=== PATIENT | female | born 1965 | race Caucasian/White ===

== ENCOUNTER 2016-06-07 17:32 | Emergency (ER) | payer OTHER ==
[~2016-06-07] VITALS: Ht 172.7 cm; Wt 104.3 kg
[~2016-06-07 17:32] MED LIST: 'PARAFON FORTE500 M1 PO; BACTRIM DS 8001 TA1 PO; CYCLOBENZAPRINE10 MG PO; DITROPAN5 MG PO; KLONOPIN0.5 MG PO; KLONOPIN1 MG PO; NAPROSYN500 MG PO; NORCO 10-325 T1 EACH PO; PAXIL20 MG PO; PAXIL30 M1 PO; PHENERGAN W/ DE30 ML PO; PREDNICOT10 MG PO; PRILOSEC20 M1 PO; PROAIR HFA0.09 MG/AC INH; PROVENTIL0.09 MG/A1 INH; PYRIDIUM200 MG PO; SINGULAIR10 MG PO
[2016-06-07] MEDS ORDERED: PREDNISONE10 MG PO (19:28)
[2016-06-07] MEDS ORDERED: AUGMENTIN 875-875 MG PO (19:28)
== END 2016-06-07 19:35 | disposition home or self-care (01) ==
LOC: ED 17:32
DX: J20.9 Acute bronchitis, unspecified (principal); F17.210 Nicotine dependence, cigarettes, uncomplicated; Z90.49 Acquired absence of other specified parts of digestive tract; Z79.899 Other long term (current) drug therapy

== ENCOUNTER 2016-10-02 22:33 | Inpatient (IN) | payer OTHER ==
[~2016-10-02] VITALS: Ht 172.7 cm; Wt 94.9 kg
[~2016-10-02 22:33] MED LIST changes: +AUGMENTIN 875-875 MG PO; +PREDNISONE10 MG PO
[2016-10-02 22:43] VITALS: BP 162/65
[2016-10-02 23:25] LABS: BASO % 0.2 % (0.0-1.0); EOS # 0.1 10*3/uL (0.0-0.4); EOS % 0.4 % (1.0-4.0); HEMOGLOBIN 13.2 g/dl (12.0-16.0); IG # 0.1 10*3/uL (0.0-0.1); LYMPH # 2.8 10*3/uL (1.3-4.4); LYMPH % 15.6 % (27.0-41.0); MEAN CELL VOLUME 90.9 fl (81.0-99.0); MEAN CORPUSCULAR HGB 30.8 pg (27.0-31.0); MEAN CORPUSCULAR HGB CONC 33.8 g/dl (33.0-37.0); MEAN PLATELET VOLUME 11.2 fl (9.6-12.3); MONO # 0.8 10*3/uL (0.1-1.0); MONO % 4.5 % (3.0-9.0); NEUT # 14.4 10*3/uL (2.3-7.9); NEUT % 78.9 % (47.0-73.0); PLATELET COUNT AUTOMATED 254 10*3/uL (130-400); RED BLOOD COUNT 4.29 10*6/uL (4.10-5.10); RED CELL DISTRI WIDTH 12.7 % (0-14.5); WHITE BLOOD COUNT 18.2 10*3/uL (4.8-10.8)
[2016-10-02 23:34] LABS: BILIRUBIN NEGATIVE (NEGATIVE); BLOOD 2+ (NEGATIVE); CLARITY CLEAR (CLEAR); COLOR YELLOW (YELLOW); GLUCOSE NEGATIVE (NEGATIVE); KETONE NEGATIVE (NEGATIVE); LEUKO ESTERASE NEGATIVE (NEGATIVE); NITRITE NEGATIVE (NEGATIVE); PH 5.5 (5.0-9.0); PROTEIN NEGATIVE (NEGATIVE); SPECIFIC GRAVITY <= 1.005 (1.005-1.030); UROBILINOGEN 0.2 E.U./dl (0.2-1.0)
[2016-10-02 23:40] LABS: BACTERIA TRACE
[2016-10-02 23:41] LABS: URINE REFLEX COMMENT YES (NO)
[2016-10-02 23:41] LABS: ALBUMIN 3.7 gm/dl (3.1-4.5); ALKALINE PHOSPHATASE 91 U/L (45-117); BILIRUBIN, TOTAL 0.3 mg/dl (0.2-1.0); BUN 13 mg/dl (7-24); CARBON DIOXIDE 23 mmol/L (21-32); CHLORIDE 105 mmol/L (98-107); EST GLOM FILT AFRICAN AMERICAN > 60 ml/min; GLUCOSE 98 mg/dL (65-99); POTASSIUM 3.4 mmol/L (3.5-5.1); SGOT/AST 10 IU/L (3-35); SGPT/ALT 16 U/L (12-78); SODIUM 137 mmol/L (136-145); TOTAL PROTEIN 7.2 gm/dL (6.4-8.2)
[2016-10-03] VITALS (12 sets, daily range): BP systolic 100–158; BP diastolic 49–76
[2016-10-03 06:06] LABS: BASO % 0.2 % (0.0-1.0); EOS # 0.1 10*3/uL (0.0-0.4); EOS % 0.8 % (1.0-4.0); HEMATOCRIT 33.8 % (37.0-47.0); HEMOGLOBIN 11.5 g/dl (12.0-16.0); IG # 0.1 10*3/uL (0.0-0.1); LYMPH # 2.7 10*3/uL (1.3-4.4); MEAN CELL VOLUME 91.8 fl (81.0-99.0); MEAN CORPUSCULAR HGB 31.3 pg (27.0-31.0); MEAN PLATELET VOLUME 10.8 fl (9.6-12.3); MONO # 0.6 10*3/uL (0.1-1.0); NEUT # 9.2 10*3/uL (2.3-7.9); NEUT % 72.6 % (47.0-73.0); PLATELET COUNT AUTOMATED 206 10*3/uL (130-400); RED BLOOD COUNT 3.68 10*6/uL (4.10-5.10); RED CELL DISTRI WIDTH 12.7 % (0-14.5); WHITE BLOOD COUNT 12.7 10*3/uL (4.8-10.8)
[2016-10-03 06:21] LABS: CKMB 1.3 ng/ml (0.5-3.6); CPK 116 U/L (26-192)
[2016-10-03 06:23] LABS: TROPONIN I < 0.015 ng/ml (<0.045)
[2016-10-03 06:36] LABS: BUN 10 mg/dl (7-24); CARBON DIOXIDE 25 mmol/L (21-32); CHLORIDE 112 mmol/L (98-107); CHOLESTEROL 142 mg/dL (<200); EST GLOM FILT AFRICAN AMERICAN > 60 ml/min; FREE T4 1.47 ng/dl (0.76-1.46); GLUCOSE 118 mg/dL (65-99); HDL CHOLESTEROL 38 mg/dl (40-60); LDL CHOLESTEROL 85 mg/dL (9-159); POTASSIUM 3.2 mmol/L (3.5-5.1); SODIUM 143 mmol/L (136-145); TRIGLYCERIDES 97 mg/dl (<150); VLDL CHOLESTEROL 19 mg/dL (6-40)
[2016-10-03 06:46] LABS: INTERNATIONAL NORM RATIO 1.1 (2.0-3.5); PROTHROMBIN TIME 11.2 SECONDS (9.0-12.4)
[2016-10-03 07:15] LABS: HEMOGLOBIN A1c 5.7 % (4.8-5.6)
[2016-10-03 08:02] LABS: VITAMIN D, 25-HYDROXY 25.4 ng/mL (30-100)
[2016-10-03 08:03] LABS: FOLIC ACID 8.09 ng/mL (>5.38)
[2016-10-03 12:09] LABS: CKMB 1.3 ng/ml (0.5-3.6); CPK 99 U/L (26-192)
[2016-10-03 12:12] LABS: TROPONIN I < 0.015 ng/ml (<0.045)
[2016-10-03 18:09] LABS: CKMB 1.4 ng/ml (0.5-3.6); CPK 95 U/L (26-192); TROPONIN I < 0.015 ng/ml (<0.045)
[2016-10-04] VITALS: BP 122/51
[2016-10-04 08:00] VITALS: BP 136/59
[2016-10-04 12:00] VITALS: BP 104/52
[2016-10-04 16:00] VITALS: BP 111/47
[2016-10-04 20:00] VITALS: BP 122/63
[2016-10-05] VITALS: BP 130/72
[2016-10-05 06:01] LABS: BASO % 0.3 % (0.0-1.0); EOS # 0.3 10*3/uL (0.0-0.4); EOS % 3.8 % (1.0-4.0); HEMATOCRIT 35.1 % (37.0-47.0); HEMOGLOBIN 11.7 g/dl (12.0-16.0); LYMPH # 2.8 10*3/uL (1.3-4.4); LYMPH % 32.4 % (27.0-41.0); MEAN CELL VOLUME 94.4 fl (81.0-99.0); MEAN CORPUSCULAR HGB 31.5 pg (27.0-31.0); MEAN CORPUSCULAR HGB CONC 33.3 g/dl (33.0-37.0); MEAN PLATELET VOLUME 11.4 fl (9.6-12.3); MONO # 0.4 10*3/uL (0.1-1.0); NEUT % 58.3 % (47.0-73.0); PLATELET COUNT AUTOMATED 255 10*3/uL (130-400); RED BLOOD COUNT 3.72 10*6/uL (4.10-5.10); RED CELL DISTRI WIDTH 12.9 % (0-14.5); WHITE BLOOD COUNT 8.6 10*3/uL (4.8-10.8)
[2016-10-05 06:23] LABS: ALBUMIN 2.7 gm/dl (3.1-4.5); BUN 7 mg/dl (7-24); CARBON DIOXIDE 25 mmol/L (21-32); CHLORIDE 112 mmol/L (98-107); EST GLOM FILT AFRICAN AMERICAN > 60 ml/min; GLUCOSE 96 mg/dL (65-99); POTASSIUM 3.9 mmol/L (3.5-5.1); SGOT/AST 12 IU/L (3-35); SGPT/ALT 15 U/L (12-78); SODIUM 145 mmol/L (136-145)
[2016-10-05 06:25] LABS: ALKALINE PHOSPHATASE 70 U/L (45-117); BILIRUBIN, TOTAL 0.3 mg/dl (0.2-1.0); TOTAL PROTEIN 5.8 gm/dL (6.4-8.2)
[2016-10-05 08:00] VITALS: BP 114/54
[2016-10-05] MEDS ORDERED: IBU800 MG PO (11:36)
[2016-10-05] MEDS ORDERED: VITAMIN D5000 I3 PO (11:36)
[2016-10-05] MEDS ORDERED: BACTRIM DS 8001 TA1 PO (11:36)
[2016-10-05] MEDS ORDERED: KEFLEX500 M1 PO (11:36)
[2016-10-05] MEDS ORDERED: B-12500 MC1 PO (11:36)
[2016-10-05] MEDS ORDERED: KROGER NIC21 MG/24 H T (11:36)
[2016-10-05 12:00] VITALS: BP 120/87
== END 2016-10-05 16:33 | disposition home or self-care (01) | DRG 871 ==
LOC: ED 22:33 → 5E 10-03 00:50 → EDHOLD 10-03 00:50 → 5E 10-03 00:57
PROVIDERS: Emergency Medicine Emergency Medical Services; Internal Medicine
PROC: 0X950ZZ Drainage of Left Axilla, Open Approach (ICD-10-PCS; principal; 2016-10-03)
DX: A41.9 Sepsis, unspecified organism (principal); E43 Unspecified severe protein-calorie malnutrition; L03.319 Cellulitis of trunk, unspecified; L02.412 Cutaneous abscess of left axilla; E87.6 Hypokalemia; R73.9 Hyperglycemia, unspecified; M54.30 Sciatica, unspecified side; E66.9 Obesity, unspecified; F41.1 Generalized anxiety disorder; F32.9 Major depressive disorder, single episode, unspecified; J45.909 Unspecified asthma, uncomplicated; E55.9 Vitamin D deficiency, unspecified; F17.200 Nicotine dependence, unspecified, uncomplicated; D64.9 Anemia, unspecified; E53.8 Deficiency of other specified B group vitamins; R31.21 Asymptomatic microscopic hematuria; M54.5 Low back pain; Z79.2 Long term (current) use of antibiotics; Z71.6 Tobacco abuse counseling; Z79.899 Other long term (current) drug therapy; Z68.31 Body mass index [BMI] 31.0-31.9, adult

== ENCOUNTER → 2017-06-23 | Day surgery (SDC) | payer OTHER ==
[~2017-06-23] VITALS: Ht 172.7 cm; Wt 93.0 kg
[~2017-06-23] MED LIST changes: +B-12500 MC1 PO; +IBU800 MG PO; +KEFLEX500 M1 PO; +KROGER NIC21 MG/24 H T; +VITAMIN D5000 I3 PO; +ZYRTEC10 MG PO
--- NOTE | ~2017-06-23 | O ---
[place], [place] OPERATIVE NOTE NAME: SANGITA DIAS UNIT #: [id number] ROOM: DOCTOR: DOTTY BARRY MD BIRTHDATE: [birth year] DOS: 06/23/2017 HISTORY OF PRESENT ILLNESS: This is a 51-year-old patient who presented with a chief complaint of dyspepsia on Prilosec, diarrhea and constipation, changes in bowel movement. ALLERGIES: No known medications. FAMILY HISTORY: Noncontributory. PAST SURGICAL HISTORY: Cholecystectomy, tonsillectomy, sinus cyst repair. PAST MEDICAL HISTORY: Anxiety. SOCIAL HISTORY: Smoker, nonalcohol consumer. PROCEDURE: Today's procedure part of investigation is panendoscopy and colonoscopy. PREMEDICATION: Versed and Diprivan. SCOPE: Olympus forward-viewing gastroscope Q10 video. REPORT: After putting the patient in left lateral position and application of lubricant to the scope, the scope was introduced. Thereafter, under direct visualization, I advanced through the length of the esophagus without difficulty. Small hiatal hernia was noticed. Gastric pouch was entered. Gastritis was seen. Duodenal bulb, second and third part within normal limits. The patient was gradually extubated and tolerated the procedure well. IMPRESSION: Gastritis, small hiatal hernia, status post biopsy. PLAN AND DISCUSSION: Continue with PPI therapy at least omeprazole 20 mg 1 every day, antireflux measures with elevation of the head of bed, Gaviscon as antacid of choice. If she is dyspeptic still increasing to 40 mg, omeprazole per day and clinical reassessment. Awaiting biopsy results for H. pylori. GASTROENDOSCOPIC REPORT INDICATIONS: The patient has presented with change in bowel habit, diarrhea, constipation, undergoing investigation. PROCEDURE: Today's procedure part of investigation is colonoscopy. PREMEDICATION: Versed and Diprivan. SCOPE: Olympus folding colonoscope 10L video. OPERATIVE TECHNIQUE: After putting the patient in left lateral position and application of lubricant to the scope, the scope was introduced. Thereafter, [place], [place] OPERATIVE NOTE NAME: SANGITA DIAS UNIT #: [id number] ROOM: DOCTOR: DOTTY BARRY MD BIRTHDATE: [birth year] under direct visualization, advanced through the length of colon without difficulty. Diverticulosis was appreciated. Base of the cecum explored, appendiceal orifice was identified. Ileocecal valve was defined. Random biopsy of the colon was obtained, ruling out collagenous colitis or infiltrative disease. The patient extubated, tolerated procedure well. IMPRESSION: Diverticulosis, sigmoid colon mild, status post random biopsy of colon, ruling out collagenous or infiltrating diseases. PLAN AND DISCUSSION: Awaiting biopsy results. Meanwhile, I will try to start her on dicyclomine 10 mg 1 every day to see if the diarrhea phase change in bowel habit is going to be resolved. We are keeping in mind, this patient may be suffering as well from irritable bowel syndrome, high fiber diet was recommended. Follow up as outpatient routinely with you in office, p.r.n. visit with us in GI clinic. I thank you again for your very kind referral. DOTTY BARRY MD CM:OPRECORD:OPERATIVE NOTE [id number] 1322 EDWINA Zee (CHERYL BARRY MD 06/23/17 1321 interface
[2017-06-23 10:27] VITALS: BP 109/69
[2017-06-23 11:59] VITALS: BP 130/65
[2017-06-23 12:14] VITALS: BP 130/65
[2017-06-23 12:29] VITALS: BP 130/65
== END | disposition home or self-care (01) ==
LOC: SDC 06-20 09:30
DX: K29.50 Unspecified chronic gastritis without bleeding (principal); K57.30 Diverticulosis of large intestine without perforation or abscess without bleeding; Z90.49 Acquired absence of other specified parts of digestive tract; F41.9 Anxiety disorder, unspecified; F17.210 Nicotine dependence, cigarettes, uncomplicated; K31.9 Disease of stomach and duodenum, unspecified; J45.909 Unspecified asthma, uncomplicated; K21.9 Gastro-esophageal reflux disease without esophagitis

== ENCOUNTER → 2017-09-01 | Outpatient (CLI) | payer OTHER ==
[~2017-09-01] MED LIST changes: +ASPIRIN81 M1 PO
== END | disposition home or self-care (01) ==
LOC: RAD 13:58
DX: M41.84 Other forms of scoliosis, thoracic region (principal); M25.511 Pain in right shoulder; R53.1 Weakness; R20.0 Anesthesia of skin

== ENCOUNTER → 2017-09-29 | Outpatient (CLI) | payer OTHER ==
--- NOTE | ~2017-09-29 | ST ---
[place], [place] EXERCISE STRESS TEST REPORT [id number] UNIT #: [id number] ROOM: DOCTOR: ZARA HERNÁNDEZ MD BIRTHDATE: [birth year] DOS: 09/29/2017 PHARMACOLOGIC STRESS TEST REFERRED BY: Dr. Prasad. REASON: Chest pain and fatigue. PROCEDURE: The patient was given a rapid infusion of regadenoson 0.4 mg intravenously followed by a saline flush. Her resting electrocardiogram showed sinus bradycardia at a rate of 42. With the infusion, her heart rate van to 88. Her resting blood pressure of 120/76 van to 124/74. The patient did experience dyspnea, nausea, headache and "weird sensations" but these passed spontaneously. Forty seconds after the infusion of regadenoson, she was given radionuclide intravenously. Her electrocardiogram showed no diagnostic changes with the infusion. IMPRESSION: 1. Well tolerated infusion of regadenoson. 2. Radionuclide injected. Please see the separate imaging report for further details of the patient's stress test results. ZARA HERNÁNDEZ MD CM:STRESS:EXERCISE STRESS TEST REPORT [id number] ZARA HERNÁNDEZ MD
== END | disposition home or self-care (01) ==
LOC: CARD 09-22 10:30
DX: R07.9 Chest pain, unspecified (principal); R94.31 Abnormal electrocardiogram [ECG] [EKG]; R94.39 Abnormal result of other cardiovascular function study

== ENCOUNTER → 2018-02-19 | Outpatient (CLI) | payer OTHER | END | disposition home or self-care (01) | LOC: RAD 15:17 | DX: J45.909 Unspecified asthma, uncomplicated (principal); I25.10 Atherosclerotic heart disease of native coronary artery without angina pectoris; F17.210 Nicotine dependence, cigarettes, uncomplicated; R07.9 Chest pain, unspecified ==

== ENCOUNTER 2018-11-05 21:28 | Emergency (ER) | payer OTHER ==
[~2018-11-05] VITALS: Ht 172.7 cm; Wt 95.3 kg
[2018-11-05] MEDS ORDERED: CLINDAMYCIN HC300 MG PO (22:22)
== END 2018-11-05 22:10 | disposition home or self-care (01) ==
LOC: ED 21:28
DX: N61.1 Abscess of the breast and nipple (principal); J45.909 Unspecified asthma, uncomplicated; E66.9 Obesity, unspecified; F17.200 Nicotine dependence, unspecified, uncomplicated; Z68.30 Body mass index [BMI] 30.0-30.9, adult; Z90.49 Acquired absence of other specified parts of digestive tract; Z79.899 Other long term (current) drug therapy; Z79.82 Long term (current) use of aspirin

== ENCOUNTER 2018-11-09 22:38 | Emergency (ER) | payer OTHER ==
[~2018-11-09] VITALS: Ht 172.7 cm; Wt 97.5 kg
[~2018-11-09 22:38] MED LIST changes: +CLINDAMYCIN HC300 MG PO
[2018-11-09 23:05] LABS: BILIRUBIN 1+ (NEGATIVE); BLOOD 3+ (NEGATIVE); CLARITY CLOUDY (CLEAR); COLOR BROWN (YELLOW); GLUCOSE NEGATIVE (NEGATIVE); KETONE TRACE (NEGATIVE); LEUKO ESTERASE 2+ (NEGATIVE); NITRITE POSITIVE (NEGATIVE); PH 5.5 (5.0-9.0); SPECIFIC GRAVITY >= 1.030 (1.005-1.030)
[2018-11-09] MEDS ORDERED: BRILINTA90 M1 PO (23:12)
[2018-11-09] MEDS ORDERED: ATORVASTATIN CA40 M1 PO (23:12)
[2018-11-09] MEDS ORDERED: BUPROPION HCL150 M1 PO (23:12)
[2018-11-09] MEDS ORDERED: LISINOPRIL5 MG PO (23:12)
[2018-11-09] MEDS ORDERED: IMDUR SA30 MG PO (23:12)
[2018-11-09] MEDS ORDERED: CYCLOBENZAPRINE10 MG PO (23:13)
[2018-11-09 23:14] LABS: WBC TNTC wbc/hpf (0-5)
[2018-11-09 23:15] LABS: BACTERIA 2+; RBC TNTC rbc/hpf (0-2)
[2018-11-09] MEDS ORDERED: PYRIDIUM200 M1 PO (23:25)
[2018-11-09] MEDS ORDERED: AMINOPHYLLIN200 MG PO (23:25)
== END 2018-11-09 23:45 | disposition home or self-care (01) ==
LOC: ED 22:38
PROVIDERS: Physician Assistant
DX: N39.0 Urinary tract infection, site not specified (principal); F17.200 Nicotine dependence, unspecified, uncomplicated; Z79.82 Long term (current) use of aspirin; Z79.899 Other long term (current) drug therapy; Z90.49 Acquired absence of other specified parts of digestive tract

== ENCOUNTER 2018-11-19 14:06 | Emergency (ER) | payer OTHER ==
[~2018-11-19] VITALS: Ht 172.7 cm; Wt 95.3 kg
[~2018-11-19 14:06] MED LIST changes: +AMINOPHYLLIN200 MG PO; +ATORVASTATIN CA40 M1 PO; +BRILINTA90 M1 PO; +BUPROPION HCL150 M1 PO; +IMDUR SA30 MG PO; +LISINOPRIL5 MG PO; +PYRIDIUM200 M1 PO
[2018-11-19 14:43] LABS: BILIRUBIN NEGATIVE (NEGATIVE); BLOOD 2+ (NEGATIVE); CLARITY CLEAR (CLEAR); COLOR YELLOW (YELLOW); GLUCOSE NEGATIVE (NEGATIVE); KETONE NEGATIVE (NEGATIVE); LEUKO ESTERASE NEGATIVE (NEGATIVE); NITRITE NEGATIVE (NEGATIVE); SPECIFIC GRAVITY >= 1.030 (1.005-1.030)
[2018-11-19 14:48] LABS: EPITHELIAL CELLS 31-40
[2018-11-19 14:49] LABS: MUCOUS 1+
[2018-11-19] MEDS ORDERED: SEPTDS PO (15:46)
[2018-11-19] MEDS ORDERED: PYRIDIUM200 M1 PO (15:46)
== END 2018-11-19 16:00 | disposition home or self-care (01) ==
LOC: ED 14:06
PROVIDERS: Emergency Medicine
DX: R30.0 Dysuria (principal); F17.200 Nicotine dependence, unspecified, uncomplicated; Z90.89 Acquired absence of other organs; Z98.890 Other specified postprocedural states; Z79.899 Other long term (current) drug therapy; Z79.82 Long term (current) use of aspirin

== ENCOUNTER 2019-06-19 17:27 | Emergency (ER) | payer OTHER ==
[~2019-06-19] VITALS: Ht 172.7 cm; Wt 81.6 kg
[~2019-06-19 17:27] MED LIST changes: +SEPTDS PO
[2019-06-19 18:59] LABS: BASO # 0.1 10*3/uL (0.0-0.1); BASO % 0.4 % (0.0-1.0); EOS # 0.2 10*3/uL (0.0-0.4); EOS % 1.9 % (1.0-4.0); HEMATOCRIT 42.2 % (37.0-47.0); LYMPH # 2.8 10*3/uL (1.3-4.4); LYMPH % 23.9 % (27.0-41.0); MEAN CELL VOLUME 96.3 fl (81.0-99.0); MEAN CORPUSCULAR HGB CONC 33.2 g/dl (33.0-37.0); MEAN PLATELET VOLUME 10.6 fl (9.6-12.3); MONO # 0.5 10*3/uL (0.1-1.0); MONO % 4.5 % (3.0-9.0); NEUT # 7.9 10*3/uL (2.3-7.9); PLATELET COUNT AUTOMATED 349 10*3/uL (130-400); RED BLOOD COUNT 4.38 10*6/uL (4.10-5.10); RED CELL DISTRI WIDTH 12.3 % (0-14.5); WHITE BLOOD COUNT 11.5 10*3/uL (4.8-10.8)
[2019-06-19 19:00] LABS: BILIRUBIN NEGATIVE (NEGATIVE); CLARITY CLEAR (CLEAR); COLOR YELLOW (YELLOW); GLUCOSE NEGATIVE (NEGATIVE); KETONE NEGATIVE (NEGATIVE)
[2019-06-19 19:01] LABS: BLOOD 1+ (NEGATIVE); LEUKO ESTERASE TRACE (NEGATIVE); NITRITE NEGATIVE (NEGATIVE); SPECIFIC GRAVITY 1.015 (1.005-1.030); UROBILINOGEN 0.2 E.U./dl (0.2-1.0)
[2019-06-19 19:03] LABS: BACTERIA 1+
[2019-06-19 19:09] LABS: ACT PARTIAL THROMBO TIME 24.8 SECONDS (20.0-32.1); INTERNATIONAL NORM RATIO 0.9 (2.0-3.5)
[2019-06-19 19:16] LABS: ALBUMIN 3.5 gm/dl (3.1-4.5); ALKALINE PHOSPHATASE 116 U/L (45-117); BUN 17 mg/dl (7-24); CHLORIDE 107 mmol/L (98-107); CREATININE 0.97 mg/dL (0.55-1.02); POTASSIUM 3.8 mmol/L (3.5-5.1); SGOT/AST 15 IU/L (3-35); SGPT/ALT 28 U/L (12-78); SODIUM 139 mmol/L (136-145); TOTAL PROTEIN 6.9 gm/dL (6.4-8.2)
[2019-06-19 19:18] LABS: TROPONIN I < 0.015 ng/ml (<0.045)
== END 2019-06-19 20:34 | disposition home or self-care (01) ==
LOC: ED 17:27
PROVIDERS: Emergency Medicine; Physician Assistant
DX: R05 Cough (principal); R06.02 Shortness of breath; R07.89 Other chest pain; Z20.828 Contact with and (suspected) exposure to other viral communicable diseases; Z88.2 Allergy status to sulfonamides; Z88.8 Allergy status to other drugs, medicaments and biological substances; Z79.899 Other long term (current) drug therapy; Z79.2 Long term (current) use of antibiotics

== ENCOUNTER → 2019-10-15 | Outpatient (CLI) | payer OTHER | END | disposition home or self-care (01) | LOC: RAD 16:37 | DX: M43.17 Spondylolisthesis, lumbosacral region (principal); M50.30 Other cervical disc degeneration, unspecified cervical region; M48.02 Spinal stenosis, cervical region ==

== ENCOUNTER → 2019-11-20 | Outpatient (CLI) | payer OTHER | END | disposition home or self-care (01) | LOC: MRI 14:00 | PROVIDERS: ATTEND Internal Medicine | DX: M47.816 Spondylosis without myelopathy or radiculopathy, lumbar region (principal); M48.061 Spinal stenosis, lumbar region without neurogenic claudication; M47.814 Spondylosis without myelopathy or radiculopathy, thoracic region ==

== ENCOUNTER → 2020-06-10 | Outpatient (CLI) | payer OTHER ==
[2020-06-10 19:07] LABS: BASO % 0.4 % (0.0-1.0); EOS # 0.2 10*3/uL (0.0-0.4); EOS % 1.8 % (1.0-4.0); HEMATOCRIT 41.8 % (37.0-47.0); LYMPH # 2.5 10*3/uL (1.3-4.4); LYMPH % 23.3 % (27.0-41.0); MEAN CELL VOLUME 92.5 fl (81.0-99.0); MEAN CORPUSCULAR HGB 30.1 pg (27.0-31.0); MEAN CORPUSCULAR HGB CONC 32.5 g/dl (33.0-37.0); MEAN PLATELET VOLUME 10.8 fl (9.6-12.3); MONO # 0.4 10*3/uL (0.1-1.0); NEUT # 7.4 10*3/uL (2.3-7.9); NEUT % 70.2 % (47.0-73.0); PLATELET COUNT AUTOMATED 390 10*3/uL (130-400); RED BLOOD COUNT 4.52 10*6/uL (4.10-5.10); RED CELL DISTRI WIDTH 12.8 % (0-14.5); WHITE BLOOD COUNT 10.5 10*3/uL (4.8-10.8)
[2020-06-10 19:37] LABS: ALBUMIN 3.5 gm/dl (3.1-4.5); ALKALINE PHOSPHATASE 153 U/L (45-117); BUN 8 mg/dl (7-24); CHLORIDE 107 mmol/L (98-107); CHOLESTEROL 245 mg/dL (<200); CREATININE 0.91 mg/dL (0.55-1.02); FREE T4 1.01 ng/dl (0.76-1.46); HDL CHOLESTEROL 46 mg/dl (40-60); LDL CHOLESTEROL 136 mg/dL (9-159); POTASSIUM 3.5 mmol/L (3.5-5.1); SGOT/AST 16 IU/L (3-35); SGPT/ALT 23 U/L (12-78); SODIUM 138 mmol/L (136-145); TOTAL PROTEIN 7.3 gm/dL (6.4-8.2); TRIGLYCERIDES 313 mg/dl (<150); VLDL CHOLESTEROL 63 mg/dL (6-40)
[2020-06-10 19:45] LABS: VITAMIN D, 25-HYDROXY 27.9 ng/mL (30-100)
[2020-06-12 05:06] LABS: RHEUMATOID ARTHRITIS FACTOR <10.0 IU/mL (0.0-13.9)
[2020-06-13 00:06] LABS: CCP ANTIBODIES IGG/IGA 11 units (0-19)
== END | disposition home or self-care (01) ==
LOC: LAB 17:46
PROVIDERS: ATTEND Internal Medicine
DX: Z00.01 Encounter for general adult medical examination with abnormal findings (principal); M25.561 Pain in right knee; M25.562 Pain in left knee; M79.642 Pain in left hand; M79.643 Pain in unspecified hand; I10 Essential (primary) hypertension; E78.2 Mixed hyperlipidemia; E55.9 Vitamin D deficiency, unspecified; M13.89 Other specified arthritis, multiple sites; Z13.1 Encounter for screening for diabetes mellitus

== ENCOUNTER 2020-08-12 15:55 | Emergency (ER) | payer OTHER ==
[~2020-08-12] VITALS: Ht 172.7 cm; Wt 97.5 kg
[2020-08-12 16:38] LABS: BASO % 0.4 % (0.0-1.0); EOS # 0.1 10*3/uL (0.0-0.4); EOS % 1.4 % (1.0-4.0); HEMATOCRIT 42.9 % (37.0-47.0); LYMPH # 1.7 10*3/uL (1.3-4.4); LYMPH % 20.7 % (27.0-41.0); MEAN CELL VOLUME 90.9 fl (81.0-99.0); MEAN CORPUSCULAR HGB 30.3 pg (27.0-31.0); MEAN CORPUSCULAR HGB CONC 33.3 g/dl (33.0-37.0); MEAN PLATELET VOLUME 11.1 fl (9.6-12.3); MONO # 0.4 10*3/uL (0.1-1.0); MONO % 4.5 % (3.0-9.0); NEUT % 72.8 % (47.0-73.0); PLATELET COUNT AUTOMATED 337 10*3/uL (130-400); RED BLOOD COUNT 4.72 10*6/uL (4.10-5.10); RED CELL DISTRI WIDTH 12.8 % (0-14.5); WHITE BLOOD COUNT 8.3 10*3/uL (4.8-10.8)
[2020-08-12] MEDS ORDERED: CLOPIDOGREL75 MG PO (16:48)
[2020-08-12] MEDS ORDERED: METOPROLOL SUCC25 M2 PO (16:48)
[2020-08-12 16:53] LABS: ALBUMIN 3.6 gm/dl (3.1-4.5); ALKALINE PHOSPHATASE 135 U/L (45-117); BUN 7 mg/dl (7-24); CHLORIDE 108 mmol/L (98-107); CREATININE 0.96 mg/dL (0.55-1.02); POTASSIUM 3.8 mmol/L (3.5-5.1); SGOT/AST 11 IU/L (3-35); SGPT/ALT 21 U/L (12-78); SODIUM 141 mmol/L (136-145); TOTAL PROTEIN 7.1 gm/dL (6.4-8.2)
[2020-08-12] MEDS ORDERED: ANTIHISTAMINE25 M1 PO (18:35)
[2020-08-12] MEDS ORDERED: PREDNISONE50 MG PO (18:35)
== END 2020-08-12 19:04 | disposition home or self-care (01) ==
LOC: ED 15:55
PROVIDERS: Emergency Medicine
DX: T78.40XA Allergy, unspecified, initial encounter (principal); Z79.899 Other long term (current) drug therapy; X58.XXXA Exposure to other specified factors, initial encounter

== ENCOUNTER → 2021-11-22 | Outpatient (CLI) | payer OTHER ==
[~2021-11-22] MED LIST changes: +ANTIHISTAMINE25 M1 PO; +CLOPIDOGREL75 MG PO; +METOPROLOL SUCC25 M2 PO; +PREDNISONE50 MG PO
[2021-11-22 12:28] LABS: BASO % 0.4 % (0.0-1.0); EOS # 0.2 10*3/uL (0.0-0.4); EOS % 1.4 % (1.0-4.0); HEMATOCRIT 44.3 % (37.0-47.0); LYMPH # 2.8 10*3/uL (1.3-4.4); LYMPH % 24.4 % (27.0-41.0); MEAN CELL VOLUME 92.5 fl (81.0-99.0); MEAN CORPUSCULAR HGB 31.1 pg (27.0-31.0); MEAN CORPUSCULAR HGB CONC 33.6 g/dl (33.0-37.0); MEAN PLATELET VOLUME 10.2 fl (9.6-12.3); MONO # 0.4 10*3/uL (0.1-1.0); MONO % 3.4 % (3.0-9.0); NEUT # 7.9 10*3/uL (2.3-7.9); NEUT % 70.1 % (47.0-73.0); PLATELET COUNT AUTOMATED 350 10*3/uL (130-400); RED BLOOD COUNT 4.79 10*6/uL (4.10-5.10); RED CELL DISTRI WIDTH 12.3 % (0-14.5); WHITE BLOOD COUNT 11.3 10*3/uL (4.8-10.8)
[2021-11-22 12:45] LABS: ALKALINE PHOSPHATASE 117 U/L (45-117); BUN 12 mg/dl (7-24); CHLORIDE 110 mmol/L (98-107); CREATININE 0.94 mg/dL (0.55-1.02); POTASSIUM 4.2 mmol/L (3.5-5.1); SGOT/AST 14 IU/L (3-35); SGPT/ALT 25 U/L (12-78); SODIUM 142 mmol/L (136-145); TOTAL PROTEIN 6.9 gm/dL (6.4-8.2)
[2021-11-26 19:06] LABS: METHYLMALONIC ACID 251 nmol/L (0-378)
== END | disposition home or self-care (01) ==
LOC: MRI 11-19 08:00 → LAB 12:06 → MRI 13:00 → LAB 13:00
PROVIDERS: ATTEND Psychiatry & Neurology Neurology
DX: G31.84 Mild cognitive impairment of uncertain or unknown etiology (principal); J39.2 Other diseases of pharynx

== ENCOUNTER → 2022-11-11 | Outpatient (CLI) | payer OTHER ==
[2022-11-11 13:37] LABS: BASO % 0.4 % (0.0-1.0); EOS # 0.4 10*3/uL (0.0-0.4); EOS % 5.2 % (1.0-4.0); HEMATOCRIT 42.4 % (37.0-47.0); LYMPH # 1.9 10*3/uL (1.3-4.4); LYMPH % 22.7 % (27.0-41.0); MEAN CORPUSCULAR HGB 30.3 pg (27.0-31.0); MEAN CORPUSCULAR HGB CONC 33.3 g/dl (33.0-37.0); MEAN PLATELET VOLUME 9.6 fl (9.6-12.3); MONO # 0.4 10*3/uL (0.1-1.0); MONO % 4.5 % (3.0-9.0); NEUT # 5.7 10*3/uL (2.3-7.9); PLATELET COUNT AUTOMATED 313 10*3/uL (130-400); RED BLOOD COUNT 4.66 10*6/uL (4.10-5.10); RED CELL DISTRI WIDTH 13.7 % (0-14.5); WHITE BLOOD COUNT 8.5 10*3/uL (4.8-10.8)
[2022-11-11 14:10] LABS: VITAMIN D, 25-HYDROXY 59.1 ng/mL (30-100)
[2022-11-11 14:15] LABS: FREE T4 1.14 ng/dl (0.89-1.76); POTASSIUM 4.3 mmol/L (3.4-5.1); TOTAL PROTEIN 6.7 gm/dL (6.0-8.0)
== END | disposition home or self-care (01) ==
LOC: LAB 13:16
PROVIDERS: ATTEND Internal Medicine
DX: I10 Essential (primary) hypertension (principal); E78.2 Mixed hyperlipidemia; E55.9 Vitamin D deficiency, unspecified; R73.9 Hyperglycemia, unspecified; F33.1 Major depressive disorder, recurrent, moderate; F41.1 Generalized anxiety disorder; F33.0 Major depressive disorder, recurrent, mild

== ENCOUNTER 2023-03-29 00:28 | Emergency (ER) | payer OTHER, MEDICAID ==
[~2023-03-29] VITALS: Ht 172.7 cm; Wt 108.9 kg
[2023-03-29 00:55] LABS: BILIRUBIN Negative (Negative); BLOOD Negative (Negative); CLARITY Clear (Clear); COLOR Yellow (Yellow); GLUCOSE Negative (Negative); KETONE Trace (Negative); LEUKO ESTERASE Negative (Negative); NITRITE Negative (Negative); PH 6.5 (4.5-8.0); SPECIFIC GRAVITY >= 1.030 (1.001-1.030)
[2023-03-29 01:32] LABS: BACTERIA 2+; EPITHELIAL CELLS 21-30
[2023-03-29] MEDS ORDERED: PYRIDIUM200 M1 PO (02:47)
[2023-03-29] MEDS ORDERED: CEPHALEXIN500 M1 PO (02:47)
== END 2023-03-29 02:59 | disposition home or self-care (01) ==
LOC: ED 00:28
PROVIDERS: Emergency Medicine
DX: N39.0 Urinary tract infection, site not specified (principal); J45.909 Unspecified asthma, uncomplicated; R73.9 Hyperglycemia, unspecified; E87.6 Hypokalemia; F41.9 Anxiety disorder, unspecified; D64.9 Anemia, unspecified; K21.9 Gastro-esophageal reflux disease without esophagitis; Z90.49 Acquired absence of other specified parts of digestive tract; Z90.89 Acquired absence of other organs; Z98.890 Other specified postprocedural states; Z90.12 Acquired absence of left breast and nipple; F17.200 Nicotine dependence, unspecified, uncomplicated

== ENCOUNTER 2024-02-05 20:30 | Emergency (ER) | payer OTHER, MEDICAID ==
[~2024-02-05] VITALS: Ht 172.7 cm; Wt 113.4 kg
[~2024-02-05 20:30] MED LIST changes: +CEPHALEXIN500 M1 PO
[2024-02-05 21:06] LABS: BILIRUBIN Negative (Negative); BLOOD 2+ (Negative); CLARITY Cloudy (Clear); COLOR Yellow (Yellow); GLUCOSE Negative (Negative); KETONE Negative (Negative); LEUKO ESTERASE 2+ (Negative); NITRITE Negative (Negative); PH 5.5 (4.5-8.0); UROBILINOGEN 0.2 E.U./dl (0.0-1.0)
[2024-02-05 21:16] LABS: BACTERIA 2+; FINE GRANULAR CAST 0-2; RBC 16-20 rbc/hpf (0-2); WBC 51-100 wbc/hpf (0-5)
[2024-02-05] MEDS ORDERED: PYRIDIUM200 M1 PO (21:23)
[2024-02-05] MEDS ORDERED: SEPTDS PO (21:23)
[2024-02-05] MEDS ORDERED: Phenazopyridine Hydrochlorid2 100 MG TAB PO ONE (21:25)
[2024-02-05] MEDS ORDERED: Sulfamethoxazole/Trimethopri 1 TAB TAB PO ONE (21:25)
== END 2024-02-05 21:26 | disposition home or self-care (01) ==
LOC: ED 20:30
PROVIDERS: Physician Assistant Medical
DX: N39.0 Urinary tract infection, site not specified (principal); F41.9 Anxiety disorder, unspecified; J45.909 Unspecified asthma, uncomplicated; K21.9 Gastro-esophageal reflux disease without esophagitis; E78.5 Hyperlipidemia, unspecified; F17.200 Nicotine dependence, unspecified, uncomplicated; Z90.89 Acquired absence of other organs; Z90.49 Acquired absence of other specified parts of digestive tract; Z98.890 Other specified postprocedural states

== ENCOUNTER 2025-02-05 22:05 | Emergency (ER) | payer OTHER, MEDICAID ==
[~2025-02-05] VITALS: Ht 172.7 cm; Wt 104.3 kg
[~2025-02-05 22:05] MED LIST changes: +CIPRO500 MG PO
[2025-02-05 23:05] LABS: BILIRUBIN Negative (Negative); BLOOD 2+ (Negative); CLARITY Cloudy (Clear); COLOR Yellow (Yellow); KETONE Trace (Negative); LEUKO ESTERASE 2+ (Negative); NITRITE Negative (Negative); PH 5.5 (4.5-8.0); SPECIFIC GRAVITY 1.025 (1.001-1.030); UROBILINOGEN 1.0 E.U./dl (0.0-1.0)
[2025-02-05 23:24] LABS: EPITHELIAL CELLS 41-50; WBC 51-100 wbc/hpf (0-5)
[2025-02-05 23:25] LABS: BACTERIA 3+; RBC 21-30 rbc/hpf (0-2)
[2025-02-05] MEDS ORDERED: Ciprofloxacin Hydrochloride 500 MG TAB PO ONE (23:30)
[2025-02-05] MEDS ORDERED: Phenazopyridine Hydrochlorid2 100 MG TAB PO ONE (23:35)
== END 2025-02-05 23:54 | disposition home or self-care (01) ==
LOC: ED 22:05
PROVIDERS: Internal Medicine
DX: N39.0 Urinary tract infection, site not specified (principal); F41.9 Anxiety disorder, unspecified; J45.909 Unspecified asthma, uncomplicated; K21.9 Gastro-esophageal reflux disease without esophagitis; Z90.49 Acquired absence of other specified parts of digestive tract; Z90.89 Acquired absence of other organs